=== PATIENT | male | born 1985 | race American Indian/Alaskan Native ===

== ENCOUNTER 2016-10-31 18:06 | Emergency (ER) | payer SELFPAY ==
[2016-10-31] MEDS ORDERED: PEPCID IV ONE (18:14)
[2016-10-31] MEDS ORDERED: NACL 0.9% 1000 ML 1,000 ML IV ONE (18:14)
[2016-10-31 18:15] VITALS: BP 129/83
--- NOTE | 2016-10-31 18:19 | Emergency Department Report ---
Entered by PABLO CHIU, acting as scribe for ONEIDA LIU NP. Chief Complaint: Skin Rash Stated Complaint: HIVES/ITCHING/BREATHING HEAVY Time Seen by Provider: 10/31/16 18:15 - HPI History of Present Illness: 31 y/o male presents with rash to face and neck that occurred earlier today while working outside. Sx include itching. Pt notes taking Benedryl earlier today with no relief. Pt endorses tobacco and ETOH use. - ROS Review of Systems: + rash to face and neck +itching - Exam Vital Signs: Vital Signs 10/31/16 18:13 Temperature 98.1 F Pulse Rate 55 L Respiratory 18 Rate Blood Pressure 129/83 O2 Sat by Pulse 100 Oximetry Physical Exam: skin: urticaria to face neck MSE screening note: Focused history and physical exam performed. Due to findings the following was ordered: labs ED Disposition for MSE Condition: Stable This documentation as recorded by the scribeARAM RYAN,accurately reflects the service I personally performed and the decisions made by NOE leung TRACY M, NP.
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
== END 2016-10-31 20:25 | disposition home or self-care (01) ==
LOC: ED 18:06
DX: T78.40XA Allergy, unspecified, initial encounter (principal); F17.200 Nicotine dependence, unspecified, uncomplicated
CPT/HCPCS: 96361; 96374; 96375; 99282; J2930; J7030

== ENCOUNTER 2016-11-02 14:20 | Emergency (ER) | payer SELFPAY ==
[2016-11-02 14:29] VITALS: BP 120/82
[2016-11-02] MEDS ORDERED: REGLAN IV ONE (15:45)
[2016-11-02] MEDS ORDERED: DECADRON IV ONE (15:45)
[2016-11-02] MEDS ORDERED: BENADRYL IV ONE (15:45)
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
== END 2016-11-02 17:54 | disposition home or self-care (01) ==
LOC: ED 14:20
DX: L23.9 Allergic contact dermatitis, unspecified cause (principal); X58.XXXA Exposure to other specified factors, initial encounter; Y93.89 Activity, other specified; Y92.89 Other specified places as the place of occurrence of the external cause; Y99.8 Other external cause status
CPT/HCPCS: 96374; 96375; 99282; J1100; J1200; J2765

== ENCOUNTER 2018-06-28 22:56 | Emergency (ER) | payer SELFPAY ==
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
[2018-06-29 03:30] VITALS: BP 118/78
[2018-06-29] MEDS ORDERED: TORADOL IM ONE (04:10)
[2018-06-29] MEDS ORDERED: FLEXERIL PO ONE (04:10)
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
== END 2018-06-29 05:05 | disposition home or self-care (01) ==
LOC: ED 22:56
DX: S16.1XXA Strain of muscle, fascia and tendon at neck level, initial encounter (principal); S39.012A Strain of muscle, fascia and tendon of lower back, initial encounter; V49.49XA Driver injured in collision with other motor vehicles in traffic accident, initial encounter; Y93.89 Activity, other specified; Y92.89 Other specified places as the place of occurrence of the external cause; Y99.8 Other external cause status
CPT/HCPCS: 72040; 72100; J1885